=== PATIENT | male | born 1975 | race Two or more races ===

== ENCOUNTER 2021-10-16 21:17 | Emergency (ER) | payer OTHER ==
[~2021-10-16] VITALS: Ht 175.3 cm; Wt 132.4 kg
[2021-10-16] MEDS ORDERED: ZESTRIL10 M1 PO (22:29)
[2021-10-16] MEDS ORDERED: GRALISE600 MG (22:29)
[2021-10-16] MEDS ORDERED: ADULT LOW DOSE81 M1 PO (22:29)
[2021-10-17] MEDS ORDERED: PEPCID40 MG PO (04:42)
[2021-10-17] MEDS ORDERED: LEVSIN/SL0.125 MG SL (04:42)
[2021-10-17] MEDS ORDERED: ZOFRAN8 MG PO (04:42)
[2021-10-17] MEDS ORDERED: INTESTINEX680 M1 PO (04:42)
== END 2021-10-17 05:11 ==
LOC: ER 21:17
DX: R10.13 Epigastric pain (principal); R11.2 Nausea with vomiting, unspecified; I10 Essential (primary) hypertension